=== PATIENT | female | born 1945 | race Caucasian/White ===

== ENCOUNTER 2016-12-30 12:22 | Emergency (ER) | payer MEDICARE ==
[~2016-12-30] VITALS: Ht 172.7 cm; Wt 100.0 kg
[~2016-12-30 12:22] MED LIST: PRIL20CA PO
[2016-12-30 12:24] VITALS: PULSE 94; RESP 20; TEMP 99; O2SAT 95
--- NOTE | 2016-12-30 12:30 | PD ---
Physical Exam Date Seen by Provider: Dec 30, 2016 Time Seen by Provider: 12:28 Narrative 71 WF C/O 02/24 BACK PAIN WITH SPASM SINCE THURSDAY. NO INJURY. WORSE WITH MOVEMENT. VS REVIEWED AWAITING BED PLACEMENT Data Data Last Documented VS Vital Signs Date Time Temp Pulse Resp B/P Pulse Ox O2 Delivery O2 Flow Rate FiO2 12/30/16 12:24 99.0 94 20 95 Room Air MDM Supervised Visit with JURGEN: Derrick Brown Dec 30, 2016 12:30
[2016-12-30 12:52] VITALS: BP 154/95
[2016-12-30] MEDS ORDERED: CYCL1TAB29 PO (12:53)
[2016-12-30] MEDS ORDERED: TRAM50TA PO (12:53)
[2016-12-30] MEDS ORDERED: traMADol HCL 50 MG TAB PO ONE (13:00)
[2016-12-30] MEDS ORDERED: CYCLOBENZAPRINE HCL 10 MG TAB PO ONE (13:00)
--- NOTE | 2016-12-30 13:00 | PD ---
HPI Chief Complaint: Back/ Neck Pain or Injury Time Seen by Provider: 12:53 Travel History International Travel<30 days: No Contact w/Intl Traveler<30days: No Traveled to known affect area: No History of Present Illness HPI 71-year-old female presents the emergency department with 2 days of increasing lower back spasms and pain now history of any specific injury. Patient states recent stressors due to court case that she is involved in. She denies shortness of breath, chest pain, nausea, vomiting, diarrhea, or urinary symptoms. She has no fever or chills. Patient states a similar episode many years ago treated with Lortab and perhaps a muscle relaxant. Patient states her current pain is about an 8 out of 10. Worse with movement or twisting. It is not worse with deep breaths or cough. She denies numbness, tingling, or lower extremity involvement. She is a history of allergy to codeine, epinephrine, penicillin G, and procainamide PFSH Past Medical History Cancer: No Cardiovascular Problems: No Diabetes: No Diminished Hearing: No Endocrine: No GERD: Yes Genitourinary: No Hepatitis: No Hiatal Hernia: No Immune Disorder: No Musculoskeletal: No Neurologic: No Psychiatric: No Reproductive: Yes Respiratory: No Thyroid Disease: No Menopausal: Yes : 3 Para: 0 Miscarriage: 2 : 0 Tubal Ligation: Yes Past Surgical History Abdominal Surgery: Yes (appendectomy) AICD: No Appendectomy: Yes Joint Replacement: No Pacemaker: No Other Surgery: Yes (TUMMY TUCK) Social History Alcohol Use: Yes (2 GLASSES WINE A DAY) Tobacco Use: No Substance Use: No Allergies-Medications (Allergen,Severity, Reaction): Coded Allergies: penicillin G (Verified Allergy, Severe, Rash, 12/30/16) procaine (Unverified Allergy, Severe, Hypotension, 12/30/16) epinephrine (Unverified Allergy, Unknown, fainting episode, 12/30/16) codeine (Verified Adverse Reaction, Severe, Nausea/Vomiting, 12/30/16) Reported Meds & Prescriptions Reported Meds & Active Scripts Active Tramadol (Tramadol HCl) 50 Mg Tab 50 Mg PO Q6H PRN Flexeril (Cyclobenzaprine HCl) 10 Mg Tab 10 Mg PO TID Reported Prilosec 20 mg (Omeprazole) 20 Mg Capcr 20 Mg PO DAILY Review of Systems Except as stated in HPI: all other systems reviewed are Neg General / Constitutional: No: Fever Eyes: No: Visual changes HENT: No: Headaches Cardiovascular: No: Chest Pain or Discomfort Respiratory: No: Shortness of Breath Gastrointestinal: No: Abdominal Pain Genitourinary: No: Dysuria Musculoskeletal: Positive: Myalgias, Limited ROM, Pain (see history of present illness) Skin: No Rash Neurologic: No: Weakness Psychiatric: No: Depression Endocrine: No: Polydipsia Hematologic/Lymphatic: No: Easy Bruising Physical Exam Narrative GENERAL: Patient is anxious and in moderate distress. SKIN: Warm and dry. Normal color. Normal turgor. No rash. HEAD: Atraumatic. Normocephalic. EYES: Pupils equal and round. No scleral icterus. No injection or drainage. ENT: No nasal bleeding or discharge. Mucous membranes pink and moist. Pharynx is clear. Airway is patent. NECK: Trachea midline. Supple and nontender. CARDIOVASCULAR: Regular rate and rhythm. RESPIRATORY: No accessory muscle use. Clear to auscultation. Breath sounds equal bilaterally. GASTROINTESTINAL: Abdomen soft, non-tender, nondistended. Hepatic and splenic margins not palpable. No CVA tenderness. MUSCULOSKELETAL: Extremities without clubbing, cyanosis, or edema. No obvious deformities. Patient has soft tissue tenderness and spasm palpated along the lower lumbar spine bilaterally. This spasm and pain Extends up to the lower thoracic region bilaterally. No lower extremity involvement is noted. NEUROLOGICAL: Awake and alert. No obvious cranial nerve deficits. Motor grossly within normal limits. Five out of 5 muscle strength in the arms and legs. Normal speech. PSYCHIATRIC: Appropriate mood and affect; insight and judgment normal. Data Data Last Documented VS Vital Signs Date Time Temp Pulse Resp B/P Pulse Ox O2 Delivery O2 Flow Rate FiO2 12/30/16 12:52 154/95 12/30/16 12:24 99.0 94 20 95 Room Air Orders Cyclobenzaprine (Flexeril) (12/30/16 13:00) Tramadol (Ultram) (12/30/16 13:00) [facility] Medical Decision Making Medical Screen Exam Complete: Yes Emergency Medical Condition: Yes Differential Diagnosis Anxiety. Lumbago. Muscle spasm. Narrative Course Patient is given Flexeril 10 mg by mouth now. Patient is given tramadol 50 mg by mouth now. Patient is to take Flexeril up to 3 times daily when necessary muscle spasm #15. Patient is to continue Naprosyn twice daily with food. Patient is also given tramadol 50 mg 1 every 6 hours when necessary pain #20. Patient is use heat followed by ice and gentle stretching. Patient should follow-up with her primary care physician if symptoms do not improve or return to emergency department as needed. Note is given for Court that she is not able to attend tomorrow. Diagnosis Primary Impression: Muscle spasm of back Referrals: Primary Care Physician Patient Instructions: General Instructions, Muscle Spasm (ED) Departure Forms: Work Release Special Instructions: Patient is unable to attend court due to recent muscle spasms and medications. She should be able to return on January 04. Additional Instructions: Patient is to take Flexeril up to 3 times daily when necessary muscle spasm #15. Patient is to continue Naprosyn twice daily with food. Patient is also given tramadol 50 mg 1 every 6 hours when necessary pain #20. Patient is use heat followed by ice and gentle stretching. Patient should follow-up with her primary care physician if symptoms do not improve or return to emergency department as needed. Note is given for Court that she is not able to attend tomorrow. Med/Other Pt SpecificInfo: Prescription(s) given Scripts Tramadol 50 Mg Tab50 Mg PO Q6H PRN (PAIN) #20 TAB Prov:Robert Bates MD 12/30/16 Cyclobenzaprine (Flexeril)10 Mg Tab10 Mg PO TID #15 TAB Prov:Robert Bates MD 12/30/16 Disposition: 01 DISCHARGE HOME Condition: Stable Rodger Castaneda Dec 30, 2016 13:00
[2016-12-30 16:26] VITALS: RESP 14
== END 2016-12-30 13:59 | disposition home or self-care (01) ==
LOC: NEPK 12:22
DX: M62.830 Muscle spasm of back (principal); M54.2 Cervicalgia; K21.9 Gastro-esophageal reflux disease without esophagitis
CPT/HCPCS: 99284